=== PATIENT | female | born 1990 | race Caucasian/White ===

== ENCOUNTER 2016-06-08 02:44 | Emergency (ER) | payer MEDICAID, OTHER ==
[~2016-06-08 02:44] MED LIST: ACET50TA PO; ANUS2.5C2 PR; COLA50CA3 PO; IBUP80TA PO; METH40TA PO; MOM30SS PO; PRENTAB74 PO
[2016-06-08] MEDS ORDERED: ALBUTEROL 90 MCG/ACT 8GM HFA INHALER As Ordered ONE (03:41)
[2016-06-08] MEDS ORDERED: predniSONE 20 MG TAB As Ordered ONE (04:05)
[2016-06-08] MEDS ORDERED: AZITHROMYCIN 250 MG TAB As Ordered ONE (04:06)
[2016-06-08 04:21] LABS: CONTROL LINE HCG INT CTR LINE PRESENT
[2016-06-08 04:55] LABS: CONTROL LINE INT CTR LINE PRESENT
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
[2016-06-08 10:41] LABS: IMMUNODEF. VIRAL AB CONFIRMAT NEGATIVE
[2016-06-09 09:07] LABS: HEPATITIS B SURFACE ANTIBODY NEGATIVE (POSITIVE)
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
[2016-06-12 00:08] LABS: HCV RNA NAA QUALITIATIVE Positive (Negative)
== END 2016-06-08 07:38 | disposition home or self-care (01) ==
LOC: M ED 02:44
DX: Z20.2 Contact with and (suspected) exposure to infections with a predominantly sexual mode of transmission (principal); J20.9 Acute bronchitis, unspecified; T76.21XA Adult sexual abuse, suspected, initial encounter; F32.9 Major depressive disorder, single episode, unspecified; F41.9 Anxiety disorder, unspecified; F43.10 Post-traumatic stress disorder, unspecified; B19.20 Unspecified viral hepatitis C without hepatic coma; F19.20 Other psychoactive substance dependence, uncomplicated; F17.210 Nicotine dependence, cigarettes, uncomplicated
CPT/HCPCS: 36415; 84703; 86706; 86780; 86803; 87340; 87491; 87521; 87591; 87806; 99283; G0432

== ENCOUNTER → 2018-07-01 | Outpatient (CLI) | payer OTHER, MEDICAID ==
[2018-07-01 12:06] LABS: BASO % 0.3 % (0.0-1.0); EOS # 0.1 10^3/uL (0.0-0.50); EOS % 1.3 % (0.0-3.0); HEMATOCRIT 42.5 % (36.0-47.0); HEMOGLOBIN 14.8 g/dl (12.0-15.5); LYMPH # 1.7 10^3/uL (1.5-6.5); LYMPH % 24.3 % (24.0-44.0); MEAN CORPUSCULAR HEMOGLOBIN 31.4 pg (27.0-33.0); MEAN CORPUSCULAR HGB CONC 34.8 g/dl (32.0-36.5); MEAN CORPUSCULAR VOLUME 90.2 fl (80.0-96.0); MONO # 0.5 10^3/uL (0.0-0.8); MONO % 6.6 % (0.0-5.0); NEUTROPHILS # 4.8 10^3/uL (1.8-7.7); NEUTROPHILS % 67.4 % (36.0-66.0); PLATELET COUNT, AUTOMATED 342 10^3/uL (150-450); RED BLOOD COUNT 4.71 10^6/uL (4.00-5.40); WHITE BLOOD COUNT 7.1 10^3/uL (4.0-10.0)
[2018-07-01 12:28] LABS: ALBUMIN 3.8 GM/DL (3.2-5.2); ALT/SGPT 27 U/L (12-78); BILIRUBIN,TOTAL 0.2 MG/DL (0.2-1.0); BLOOD UREA NITROGEN 13 MG/DL (7-18); CALCIUM LEVEL 8.8 MG/DL (8.5-10.1); CARBON DIOXIDE LEVEL 31 MEQ/L (21-32); CHLORIDE LEVEL 105 MEQ/L (98-107); CREATININE FOR GFR 0.68 MG/DL (0.55-1.30); GLOMERULAR FILTRATION RATE > 60.0 (>60); GLUCOSE, FASTING 95 MG/DL (70-100); POTASSIUM SERUM 4.4 MEQ/L (3.5-5.1); SODIUM LEVEL 138 MEQ/L (136-145); TOTAL PROTEIN 7.8 GM/DL (6.4-8.2)
--- NOTE | 2018-07-01 13:42 | ECGEPIP ---
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
== END ==
LOC: M LAB 11:09
PROVIDERS: ATTEND Nurse Practitioner
DX: F11.20 Opioid dependence, uncomplicated (principal); R00.1 Bradycardia, unspecified

== ENCOUNTER 2022-10-02 04:29 | Observation (INO) | payer MEDICAID, OTHER ==
[~2022-10-02] VITALS: Ht 160 cm; Wt 86.4 kg
[~2022-10-02 04:29] MED LIST changes: -ACET50TA PO; +MAPA500T17 PO
[2022-10-02] MEDS ORDERED: VANCOMYCIN HCL 2,000 MG in D5W 500 ML IV ONE (05:10)
[2022-10-02 05:33] LABS: BASO % 0.2 % (0.0-1.0); EOS # 0.1 10^3/uL (0.0-0.5); EOS % 0.4 % (0.0-3.0); HEMOGLOBIN 11.7 g/dl (12.0-15.5); LYMPH # 1.5 10^3/uL (1.5-5.0); LYMPH % 8.2 % (24.0-44.0); MEAN CORPUSCULAR HEMOGLOBIN 29.9 pg (27.0-33.0); MEAN CORPUSCULAR HGB CONC 32.5 g/dl (32.0-36.5); MEAN CORPUSCULAR VOLUME 92.1 fl (80.0-96.0); MONO # 1.1 10^3/uL (0.0-0.8); MONO % 6.2 % (2.0-8.0); NEUTROPHILS % 84.3 % (36.0-66.0); PLATELET COUNT, AUTOMATED 256 10^3/uL (150-450); RED BLOOD COUNT 3.91 10^6/uL (4.00-5.40); WHITE BLOOD COUNT 17.8 10^3/uL (4.0-10.0)
[2022-10-02 05:59] LABS: BLOOD UREA NITROGEN 9 MG/DL (9-23); CALCIUM LEVEL 8.5 MG/DL (8.5-10.1); CARBON DIOXIDE LEVEL 26 MMOL/L (20-31); CHLORIDE LEVEL 98 MMOL/L (98-107); CREATININE FOR GFR 0.62 MG/DL (0.55-1.30); GLOMERULAR FILTRATION RATE > 60.0 (>60); GLUCOSE, FASTING 101 MG/DL (60-100); SODIUM LEVEL 133 MMOL/L (136-145)
[2022-10-02] MEDS ORDERED: VANCOMYCIN HCL 1,000 MG, VIAL MATE ADAPTER 1 EACH in D5W 250 ML IV ONE ×6 (06:00)
[2022-10-02 06:38] LABS: MRSA PCR SCREEN DETECTED (NEGATIVE)
[2022-10-02] MEDS ORDERED: METH10CO PO (07:16)
[2022-10-02] MEDS ORDERED: HOME MED LIST COMPLETE! XX SCH (07:20)
[2022-10-02 11:00] VITALS: BP 137/76; TEMP 98.6; O2SAT 100
[2022-10-02] MEDS: VANCOMYCIN HCL 1,000 MG, VIAL MATE ADAPTER 1 EACH in D5W 250 ML IV SCH ×2 (14:22→21:41)
[2022-10-02 22:00] VITALS: BP 132/62; TEMP 98.4; O2SAT 90
[2022-10-03] MEDS: VANCOMYCIN HCL 1,000 MG, VIAL MATE ADAPTER 1 EACH in D5W 250 ML IV SCH (05:54)
[2022-10-03 06:00] VITALS: BP 124/86; TEMP 98.6; O2SAT 90
[2022-10-03 07:13] LABS: ERYTHROCYTE SEDIMENTATION RATE 56 mm/hr (0-20)
[2022-10-03 07:23] LABS: VANCOMYCIN LEVEL TROUGH 9.3 UG/ML (10.0-20.0)
[2022-10-03 07:25] LABS: ALBUMIN 2.7 G/DL (3.2-5.2); ALKALINE PHOSPHATASE 130 U/L (46-116); ALT/SGPT 40 U/L (7.0-40); AST/SGOT 49 U/L (<34); BILIRUBIN,TOTAL 0.4 MG/DL (0.3-1.2); BLOOD UREA NITROGEN 8 MG/DL (9-23); CALCIUM LEVEL 8.8 MG/DL (8.5-10.1); CARBON DIOXIDE LEVEL 29 MMOL/L (20-31); CHLORIDE LEVEL 103 MMOL/L (98-107); CREATININE FOR GFR 0.63 MG/DL (0.55-1.30); GLOMERULAR FILTRATION RATE > 60.0 (>60); GLUCOSE, FASTING 74 MG/DL (60-100); POTASSIUM SERUM 3.8 MMOL/L (3.5-5.1); SODIUM LEVEL 140 MMOL/L (136-145); TOTAL PROTEIN 6.2 G/DL (5.7-8.2)
[2022-10-03 07:46] LABS: HEMATOCRIT 33.8 % (36.0-47.0); MEAN CORPUSCULAR HEMOGLOBIN 30.2 pg (27.0-33.0); MEAN CORPUSCULAR HGB CONC 32.5 g/dl (32.0-36.5); MEAN CORPUSCULAR VOLUME 92.9 fl (80.0-96.0); PLATELET COUNT, AUTOMATED 272 10^3/uL (150-450); RED BLOOD COUNT 3.64 10^6/uL (4.00-5.40); WHITE BLOOD COUNT 13.8 10^3/uL (4.0-10.0)
[2022-10-03] MEDS ORDERED: VANCOMYCIN HCL 750 MG, VIAL MATE ADAPTER 1 EACH in D5W 250 ML IV ONE (08:00)
[2022-10-03] MEDS ORDERED: CEFD300C41 PO (11:23)
[2022-10-03] MEDS ORDERED: DOXY-444 PO (11:23)
== END 2022-10-03 13:30 | disposition home or self-care (01) ==
LOC: M ED 04:29 → M ED INP 04:30 → EEVIPCON 04:30 → ENRESERV 08:43 → M MS5PR 10:41
PROVIDERS: ADMIT Internal Medicine; ATTEND Internal Medicine
DX: L03.116 Cellulitis of left lower limb (principal); B95.0 Streptococcus, group A, as the cause of diseases classified elsewhere; F19.10 Other psychoactive substance abuse, uncomplicated; F32.A Depression, unspecified; B19.20 Unspecified viral hepatitis C without hepatic coma; Z79.899 Other long term (current) drug therapy

== ENCOUNTER 2022-10-04 12:14 | Observation (INO) | payer OTHER ==
[~2022-10-04] VITALS: Ht 160 cm; Wt 88.0 kg
[~2022-10-04 12:14] MED LIST changes: +CEFD300C41 PO; +DOXY-444 PO; +METH10CO PO
[2022-10-04] MEDS ORDERED: ACETAMINOPHEN TAB 650MG DOSE (2X325MG) PO ONE (13:25)
[2022-10-04 14:14] LABS: BASO # 0.1 10^3/uL (0.0-0.2); BASO % 0.6 % (0.0-1.0); EOS # 0.1 10^3/uL (0.0-0.5); EOS % 0.6 % (0.0-3.0); HEMATOCRIT 36.3 % (36.0-47.0); HEMOGLOBIN 12.1 g/dl (12.0-15.5); LYMPH # 0.3 10^3/uL (1.5-5.0); LYMPH % 3.2 % (24.0-44.0); MEAN CORPUSCULAR HEMOGLOBIN 30.3 pg (27.0-33.0); MEAN CORPUSCULAR HGB CONC 33.3 g/dl (32.0-36.5); MONO # 0.1 10^3/uL (0.0-0.8); NEUTROPHILS # 8.1 10^3/uL (1.5-8.5); NEUTROPHILS % 93.2 % (36.0-66.0); PLATELET COUNT, AUTOMATED 304 10^3/uL (150-450); RED BLOOD COUNT 3.99 10^6/uL (4.00-5.40); WHITE BLOOD COUNT 8.7 10^3/uL (4.0-10.0)
[2022-10-04 14:30] LABS: ERYTHROCYTE SEDIMENTATION RATE 113 mm/hr (0-20)
[2022-10-04 14:36] LABS: BLOOD UREA NITROGEN 8 MG/DL (9-23); CALCIUM LEVEL 8.7 MG/DL (8.5-10.1); CARBON DIOXIDE LEVEL 24 MMOL/L (20-31); CHLORIDE LEVEL 99 MMOL/L (98-107); CREATININE FOR GFR 0.64 MG/DL (0.55-1.30); GLOMERULAR FILTRATION RATE > 60.0 (>60); GLUCOSE, FASTING 92 MG/DL (60-100); POTASSIUM SERUM 4.3 MMOL/L (3.5-5.1); SODIUM LEVEL 133 MMOL/L (136-145)
[2022-10-04] MEDS ORDERED: KETOROLAC 30 MG/ML 1ML VIAL IV ONE (15:15)
[2022-10-04] MEDS ORDERED: ACETAMINOPHEN TAB 650MG DOSE (2X325MG) PO PRN (16:05)
[2022-10-04] MEDS ORDERED: MED REC IN PROGRESS XX SCH (16:30)
[2022-10-04] MEDS: NS 1,000 ML IV SCH (16:47)
[2022-10-04] MEDS: PIPERACILLIN/TAZOBACTAM SOD 3.375 GM in D5W MINI-BAG PLUS 50 ML IV SCH ×2 (16:47→22:25)
[2022-10-04 18:09] LABS: ALBUMIN 2.8 G/DL (3.2-5.2); BILIRUBIN,DIRECT 0.8 MG/DL (<0.4); BILIRUBIN,TOTAL 1.2 MG/DL (0.3-1.2); TOTAL PROTEIN 6.5 G/DL (5.7-8.2)
[2022-10-04] MEDS ORDERED: HOME MED LIST COMPLETE! XX SCH (18:10)
[2022-10-04 18:28] LABS: RSV AMPLIFICATION NEGATIVE (NEGATIVE)
[2022-10-04 20:30] VITALS: BP 100/54; TEMP 97.8; O2SAT 98
[2022-10-04] MEDS: ENOXAPARIN 40MG/0.4ML SYRINGE (J1650 PER 10MG) SC SCH (21:51)
[2022-10-04] MEDS ORDERED: KETOROLAC 30 MG/ML 1ML VIAL IV PRN (22:00)
[2022-10-05] MEDS: NS 1,000 ML IV SCH ×2 (03:16→12:54)
[2022-10-05] MEDS: PIPERACILLIN/TAZOBACTAM SOD 3.375 GM in D5W MINI-BAG PLUS 50 ML IV SCH ×4 (04:27→21:47)
[2022-10-05 06:00] VITALS: BP 116/62; TEMP 97.9; O2SAT 98
[2022-10-05 06:00] LABS: HEMATOCRIT 35.7 % (36.0-47.0); HEMOGLOBIN 11.5 g/dl (12.0-15.5); MEAN CORPUSCULAR HEMOGLOBIN 29.7 pg (27.0-33.0); MEAN CORPUSCULAR HGB CONC 32.2 g/dl (32.0-36.5); MEAN CORPUSCULAR VOLUME 92.2 fl (80.0-96.0); PLATELET COUNT, AUTOMATED 332 10^3/uL (150-450); RED BLOOD COUNT 3.87 10^6/uL (4.00-5.40); WHITE BLOOD COUNT 9.3 10^3/uL (4.0-10.0)
[2022-10-05 06:25] LABS: ALBUMIN 2.5 G/DL (3.2-5.2); ALKALINE PHOSPHATASE 307 U/L (46-116); ALT/SGPT 92 U/L (7.0-40); AST/SGOT 104 U/L (<34); BILIRUBIN,TOTAL 0.4 MG/DL (0.3-1.2); BLOOD UREA NITROGEN 12 MG/DL (9-23); CALCIUM LEVEL 8.3 MG/DL (8.5-10.1); CARBON DIOXIDE LEVEL 28 MMOL/L (20-31); CHLORIDE LEVEL 105 MMOL/L (98-107); CREATININE FOR GFR 0.76 MG/DL (0.55-1.30); GLOMERULAR FILTRATION RATE > 60.0 (>60); GLUCOSE, FASTING 87 MG/DL (60-100); POTASSIUM SERUM 3.5 MMOL/L (3.5-5.1); SODIUM LEVEL 141 MMOL/L (136-145); TOTAL PROTEIN 6.2 G/DL (5.7-8.2)
[2022-10-05] MEDS: METHADONE 10MG TAB PO SCH (09:25)
[2022-10-05 14:00] VITALS: BP 111/57; TEMP 97.5; O2SAT 95
[2022-10-05 20:00] VITALS: BP 108/57; TEMP 98.1; O2SAT 98
[2022-10-05] MEDS: ENOXAPARIN 40MG/0.4ML SYRINGE (J1650 PER 10MG) SC SCH (21:47)
[2022-10-06] MEDS: PIPERACILLIN/TAZOBACTAM SOD 3.375 GM in D5W MINI-BAG PLUS 50 ML IV SCH ×2 (05:23→12:00)
[2022-10-06 06:00] VITALS: BP 126/69; TEMP 97.2; O2SAT 96
[2022-10-06 06:56] LABS: BLOOD UREA NITROGEN 11 MG/DL (9-23); CALCIUM LEVEL 8.7 MG/DL (8.5-10.1); CARBON DIOXIDE LEVEL 29 MMOL/L (20-31); CHLORIDE LEVEL 106 MMOL/L (98-107); CREATININE FOR GFR 0.72 MG/DL (0.55-1.30); GLOMERULAR FILTRATION RATE > 60.0 (>60); GLUCOSE, FASTING 71 MG/DL (60-100); SODIUM LEVEL 142 MMOL/L (136-145)
[2022-10-06] MEDS: METHADONE 10MG TAB PO SCH (08:42)
[2022-10-06 14:00] VITALS: BP 123/68; TEMP 98.2; O2SAT 96
[2022-10-06] MEDS: DOXYCYCLINE HYCLATE 100MG TABLET PO SCH (21:21)
[2022-10-06] MEDS: ENOXAPARIN 40MG/0.4ML SYRINGE (J1650 PER 10MG) SC SCH (21:21)
[2022-10-07 06:00] VITALS: BP 121/68; TEMP 97.9; O2SAT 97
[2022-10-07] MEDS: METHADONE 10MG TAB PO SCH (09:04)
[2022-10-07] MEDS: DOXYCYCLINE HYCLATE 100MG TABLET PO SCH (09:04)
[2022-10-07] MEDS ORDERED: DOXY100T PO (12:03)
[2022-10-07] MEDS ORDERED: ACET1TAB55 PO (12:03)
== END 2022-10-07 14:29 | disposition home or self-care (01) ==
LOC: M ED 12:14 → M ED INP 12:15 → M MSPAV 20:30
PROVIDERS: ADMIT Internal Medicine; ATTEND Family Medicine
DX: L03.113 Cellulitis of right upper limb (principal); A41.9 Sepsis, unspecified organism; F19.10 Other psychoactive substance abuse, uncomplicated; E87.1 Hypo-osmolality and hyponatremia; E86.0 Dehydration; R00.0 Tachycardia, unspecified; R70.0 Elevated erythrocyte sedimentation rate; R79.82 Elevated C-reactive protein (CRP); R42 Dizziness and giddiness; R26.2 Difficulty in walking, not elsewhere classified; Z79.899 Other long term (current) drug therapy
CPT/HCPCS: 36415; 80048; 80053; 80076; 83605; 85025; 85027; 85652; 86140; 87040; 87631; 96361; 96365; 96366; 96372; 96375; 96376; 97116; 97161; 97530; 99284; J1650; J1885; J2543; S0109

== ENCOUNTER → 2022-12-06 | Outpatient (CLI) | payer OTHER ==
[~2022-12-06] MED LIST changes: +ACET1TAB55 PO; +DOXY100T PO
[2022-12-06 17:08] LABS: HEMATOCRIT 37.7 % (36.0-47.0); HEMOGLOBIN 12.9 g/dl (12.0-15.5); MEAN CORPUSCULAR HEMOGLOBIN 30.3 pg (27.0-33.0); MEAN CORPUSCULAR HGB CONC 34.2 g/dl (32.0-36.5); MEAN CORPUSCULAR VOLUME 88.5 fl (80.0-96.0); PLATELET COUNT, AUTOMATED 339 10^3/uL (150-450); RED BLOOD COUNT 4.26 10^6/uL (4.00-5.40); WHITE BLOOD COUNT 7.2 10^3/uL (4.0-10.0)
[2022-12-06 17:33] LABS: ALKALINE PHOSPHATASE 101 U/L (46-116); ALT/SGPT 21 U/L (7.0-40); AST/SGOT 22 U/L (<34); BILIRUBIN,TOTAL 0.5 MG/DL (0.3-1.2); BLOOD UREA NITROGEN 14 MG/DL (9-23); CALCIUM LEVEL 9.2 MG/DL (8.5-10.1); CARBON DIOXIDE LEVEL 27 MMOL/L (20-31); CHLORIDE LEVEL 105 MMOL/L (98-107); CREATININE FOR GFR 0.62 MG/DL (0.55-1.30); GLOMERULAR FILTRATION RATE > 60.0 (>60); GLUCOSE, FASTING 93 MG/DL (60-100); POTASSIUM SERUM 3.8 MMOL/L (3.5-5.1); SODIUM LEVEL 140 MMOL/L (136-145); TOTAL PROTEIN 7.6 G/DL (5.7-8.2)
[2022-12-06 17:46] LABS: HCG, SERUM QUALITATIVE NEGATIVE (NEGATIVE)
[2022-12-06 18:00] LABS: HIV 1&2 SCREEN NEGATIVE (NEGATIVE)
[2022-12-06 18:09] LABS: HEPATITIS C VIRUS ABY INDEX > 11.00 INDEX (<0.8)
[2022-12-06 18:47] LABS: GC DNA AMPLIFICATION NEGATIVE (NEGATIVE)
== END ==
LOC: M LAB 15:53
PROVIDERS: ATTEND Family Medicine
DX: F11.20 Opioid dependence, uncomplicated (principal)

== ENCOUNTER 2023-05-24 11:10 | Inpatient (IN) | payer OTHER ==
[~2023-05-24] VITALS: Ht 160 cm; Wt 83.6 kg
[~2023-05-24 11:10] MED LIST changes: +CEFD1CAP9 PO; -CEFD300C41 PO
[2023-05-24] MEDS ORDERED: IBUP200T46 PO (11:33)
[2023-05-24] MEDS ORDERED: METH5TA PO (11:34)
[2023-05-24 14:40] LABS: BASO % 0.2 % (0.0-1.0); HEMATOCRIT 37.8 % (36.0-47.0); HEMOGLOBIN 12.6 g/dl (12.0-15.5); LYMPH # 0.8 10^3/uL (1.5-5.0); MEAN CORPUSCULAR HEMOGLOBIN 30.1 pg (27.0-33.0); MEAN CORPUSCULAR HGB CONC 33.3 g/dl (32.0-36.5); MEAN CORPUSCULAR VOLUME 90.2 fl (80.0-96.0); MONO # 0.6 10^3/uL (0.0-0.8); MONO % 4.5 % (2.0-8.0); NEUTROPHILS # 11.3 10^3/uL (1.5-8.5); NEUTROPHILS % 88.4 % (36.0-66.0); PLATELET COUNT, AUTOMATED 236 10^3/uL (150-450); RED BLOOD COUNT 4.19 10^6/uL (4.00-5.40); WHITE BLOOD COUNT 12.8 10^3/uL (4.0-10.0)
[2023-05-24] MEDS: ACETAMINOPHEN 500 MG TAB PO ONE (14:40)
[2023-05-24] MEDS: diphenhydrAMINE 50MG/ML VIAL IV ONE (14:40)
[2023-05-24] MEDS: methylPREDNISolone 125MG 2ML VIAL IV ONE (14:40)
[2023-05-24] MEDS: NS 1,000 ML IV ONE (14:40)
[2023-05-24 14:50] LABS: ERYTHROCYTE SEDIMENTATION RATE 80 mm/hr (0-20)
[2023-05-24 15:11] LABS: BLOOD UREA NITROGEN 10 MG/DL (9-23); CALCIUM LEVEL 8.4 MG/DL (8.5-10.1); CARBON DIOXIDE LEVEL 31 MMOL/L (20-31); CHLORIDE LEVEL 96 MMOL/L (98-107); CREATININE FOR GFR 0.64 MG/DL (0.55-1.30); GLOMERULAR FILTRATION RATE > 60.0 (>60); GLUCOSE, FASTING 88 MG/DL (60-100); POTASSIUM SERUM 3.7 MMOL/L (3.5-5.1); SODIUM LEVEL 132 MMOL/L (136-145)
[2023-05-24 15:12] LABS: ALBUMIN 2.7 G/DL (3.2-5.2); ALKALINE PHOSPHATASE 116 U/L (46-116); ALT/SGPT 21 U/L (7.0-40); AST/SGOT 27 U/L (<34); BILIRUBIN,DIRECT 0.1 MG/DL (<0.4); BILIRUBIN,TOTAL 0.3 MG/DL (0.3-1.2); TOTAL PROTEIN 6.6 G/DL (5.7-8.2)
[2023-05-24] MEDS ORDERED: ISOVUE-370 76% 100ML VIAL As Ordered ONE (15:14)
[2023-05-24 15:19] LABS: PROCALCITONIN 0.44 ng/ml
[2023-05-24 15:52] LABS: HCG, SERUM QUALITATIVE NEGATIVE (NEGATIVE)
[2023-05-24 15:57] LABS: MONO SCRN NEGATIVE (NEGATIVE)
[2023-05-24] MEDS: AMPICILLIN SOD/SULBACTAM SOD 3 GM in D5W MINI-BAG PLUS 100 ML IV ONE (18:51)
[2023-05-24] MEDS: SODIUM CHLORIDE 0.9% 1000ML IV STA (19:50)
[2023-05-24 20:25] LABS: HIV 1&2 SCREEN NEGATIVE (NEGATIVE)
[2023-05-24 20:55] VITALS: BP 114/69; TEMP 97.5; O2SAT 95
[2023-05-24 23:30] VITALS: BP 107/60; TEMP 97.8; O2SAT 96
[2023-05-25] MEDS: AMPICILLIN SOD/SULBACTAM SOD 3 GM in D5W MINI-BAG PLUS 100 ML IV SCH (01:19)
[2023-05-25 04:45] VITALS: BP 108/68; TEMP 97.9; O2SAT 99
[2023-05-25 05:31] LABS: HEMATOCRIT 33.8 % (36.0-47.0); HEMOGLOBIN 11.4 g/dl (12.0-15.5); MEAN CORPUSCULAR HEMOGLOBIN 30.2 pg (27.0-33.0); MEAN CORPUSCULAR HGB CONC 33.7 g/dl (32.0-36.5); MEAN CORPUSCULAR VOLUME 89.7 fl (80.0-96.0); PLATELET COUNT, AUTOMATED 198 10^3/uL (150-450); RED BLOOD COUNT 3.77 10^6/uL (4.00-5.40); WHITE BLOOD COUNT 9.9 10^3/uL (4.0-10.0)
[2023-05-25 05:52] LABS: BLOOD UREA NITROGEN 10 MG/DL (9-23); CARBON DIOXIDE LEVEL 28 MMOL/L (20-31); CHLORIDE LEVEL 105 MMOL/L (98-107); CREATININE FOR GFR 0.47 MG/DL (0.55-1.30); GLOMERULAR FILTRATION RATE > 60.0 (>60); GLUCOSE, FASTING 159 MG/DL (60-100); POTASSIUM SERUM 3.9 MMOL/L (3.5-5.1); SODIUM LEVEL 139 MMOL/L (136-145)
[2023-05-25 05:58] LABS: PROCALCITONIN 0.33 ng/ml
[2023-05-25 07:26] VITALS: BP 110/56; TEMP 98.3; O2SAT 95
[2023-05-25 08:27] LABS: BLOOD UREA NITROGEN 8 MG/DL (9-23); CALCIUM LEVEL 8.3 MG/DL (8.5-10.1); CARBON DIOXIDE LEVEL 29 MMOL/L (20-31); CHLORIDE LEVEL 103 MMOL/L (98-107); CREATININE FOR GFR 0.44 MG/DL (0.55-1.30); GLOMERULAR FILTRATION RATE > 60.0 (>60); GLUCOSE, FASTING 147 MG/DL (60-100); POTASSIUM SERUM 3.8 MMOL/L (3.5-5.1); SODIUM LEVEL 137 MMOL/L (136-145)
[2023-05-25] MEDS ORDERED: HOME MED LIST COMPLETE! XX SCH (08:45)
[2023-05-25] MEDS: ENOXAPARIN 40MG/0.4ML SYRINGE (J1650 PER 10MG) SC SCH (08:45)
[2023-05-25] MEDS: POTASSIUM CHLORIDE 10MEQ SR TABLET PO ONE (10:25)
[2023-05-25] MEDS: ACETAMINOPHEN TAB 650MG DOSE (2X325MG) PO PRN (10:25)
[2023-05-25 11:41] VITALS: BP 98/54; TEMP 97.3; O2SAT 96
[2023-05-25 12:39] LABS: APPEARANCE, URINE CLEAR (CLEAR); BACTERIA, URINE AUTO NEGATIVE (NEGATIVE); BILIRUBIN, URINE AUTO NEGATIVE (NEGATIVE); BLOOD, URINE BLOOD NEGATIVE (NEGATIVE); COLOR, URINE YELLOW (YELLOW); GLUCOSE, URINE (UA) AUTO NEGATIVE (NEGATIVE); KETONE, URINE AUTO NEGATIVE (NEGATIVE); LEUKOCYTE ESTERASE, URINE AUTO NEGATIVE (NEGATIVE); MUCUS, URINE SMALL (NEGATIVE); NITRITE, URINE AUTO NEGATIVE (NEGATIVE); PROTEIN, URINE AUTO 1+ mg/dL (NEGATIVE); RBC, URINE AUTO 0 /HPF (0-3); SPECIFIC GRAVITY URINE AUTO 1.016 (1.002-1.035); SQUAMOUS EPITHELIAL CELL UR AU 4 /HPF (0-6); WBC, URINE AUTO 1 /HPF (0-3)
[2023-05-25 15:18] LABS: BLOOD UREA NITROGEN 10 MG/DL (9-23); CALCIUM LEVEL 8.7 MG/DL (8.5-10.1); CARBON DIOXIDE LEVEL 30 MMOL/L (20-31); CHLORIDE LEVEL 104 MMOL/L (98-107); CREATININE FOR GFR 0.42 MG/DL (0.55-1.30); GLOMERULAR FILTRATION RATE > 60.0 (>60); GLUCOSE, FASTING 142 MG/DL (60-100); POTASSIUM SERUM 4.1 MMOL/L (3.5-5.1); SODIUM LEVEL 140 MMOL/L (136-145)
[2023-05-25] MEDS: METHADONE 10MG TAB PO SCH (15:23)
[2023-05-25 16:11] VITALS: BP 98/60; TEMP 97.2; O2SAT 97
[2023-05-25 20:08] LABS: BLOOD UREA NITROGEN 9 MG/DL (9-23); CALCIUM LEVEL 8.4 MG/DL (8.5-10.1); CARBON DIOXIDE LEVEL 30 MMOL/L (20-31); CHLORIDE LEVEL 105 MMOL/L (98-107); CREATININE FOR GFR 0.47 MG/DL (0.55-1.30); GLOMERULAR FILTRATION RATE > 60.0 (>60); GLUCOSE, FASTING 165 MG/DL (60-100); POTASSIUM SERUM 3.7 MMOL/L (3.5-5.1); SODIUM LEVEL 140 MMOL/L (136-145)
[2023-05-25 20:30] VITALS: BP 99/57; TEMP 97.8; O2SAT 98
[2023-05-26] VITALS: BP 98/52; TEMP 97.6; O2SAT 96
[2023-05-26 03:12] LABS: BLOOD UREA NITROGEN 9 MG/DL (9-23); CALCIUM LEVEL 8.4 MG/DL (8.5-10.1); CARBON DIOXIDE LEVEL 33 MMOL/L (20-31); CHLORIDE LEVEL 105 MMOL/L (98-107); CREATININE FOR GFR 0.47 MG/DL (0.55-1.30); GLOMERULAR FILTRATION RATE > 60.0 (>60); GLUCOSE, FASTING 93 MG/DL (60-100); POTASSIUM SERUM 3.6 MMOL/L (3.5-5.1); SODIUM LEVEL 144 MMOL/L (136-145)
[2023-05-26 04:00] VITALS: BP 132/67; TEMP 97.5; O2SAT 93
[2023-05-26 06:42] LABS: HEMATOCRIT 33.5 % (36.0-47.0); MEAN CORPUSCULAR HEMOGLOBIN 29.8 pg (27.0-33.0); MEAN CORPUSCULAR HGB CONC 32.8 g/dl (32.0-36.5); MEAN CORPUSCULAR VOLUME 90.8 fl (80.0-96.0); PLATELET COUNT, AUTOMATED 224 10^3/uL (150-450); RED BLOOD COUNT 3.69 10^6/uL (4.00-5.40); WHITE BLOOD COUNT 8.7 10^3/uL (4.0-10.0)
[2023-05-26 06:47] LABS: BLOOD UREA NITROGEN 10 MG/DL (9-23); CALCIUM LEVEL 8.3 MG/DL (8.5-10.1); CARBON DIOXIDE LEVEL 33 MMOL/L (20-31); CHLORIDE LEVEL 105 MMOL/L (98-107); GLOMERULAR FILTRATION RATE > 60.0 (>60); GLUCOSE, FASTING 77 MG/DL (60-100); POTASSIUM SERUM 3.5 MMOL/L (3.5-5.1); SODIUM LEVEL 143 MMOL/L (136-145)
[2023-05-26 07:22] VITALS: BP 123/58; TEMP 97.5; O2SAT 95
[2023-05-26] MEDS: POTASSIUM CHLORIDE 10MEQ SR TABLET PO ONE ×2 (08:57→13:52)
[2023-05-26 11:21] VITALS: BP 122/65; TEMP 98.2; O2SAT 96
[2023-05-26 13:58] LABS: BLOOD UREA NITROGEN 9 MG/DL (9-23); CALCIUM LEVEL 7.9 MG/DL (8.5-10.1); CARBON DIOXIDE LEVEL 34 MMOL/L (20-31); CHLORIDE LEVEL 105 MMOL/L (98-107); CREATININE FOR GFR 0.48 MG/DL (0.55-1.30); GLOMERULAR FILTRATION RATE > 60.0 (>60); GLUCOSE, FASTING 82 MG/DL (60-100); POTASSIUM SERUM 3.5 MMOL/L (3.5-5.1); SODIUM LEVEL 142 MMOL/L (136-145)
[2023-05-26 19:28] VITALS: BP 110/57; TEMP 98.9; O2SAT 96
[2023-05-26 19:55] LABS: BLOOD UREA NITROGEN 7 MG/DL (9-23); CALCIUM LEVEL 8.3 MG/DL (8.5-10.1); CARBON DIOXIDE LEVEL 33 MMOL/L (20-31); CHLORIDE LEVEL 102 MMOL/L (98-107); CREATININE FOR GFR 0.51 MG/DL (0.55-1.30); GLOMERULAR FILTRATION RATE > 60.0 (>60); GLUCOSE, FASTING 106 MG/DL (60-100); POTASSIUM SERUM 3.9 MMOL/L (3.5-5.1); SODIUM LEVEL 140 MMOL/L (136-145)
[2023-05-26] MEDS ORDERED: AUGMENTIN 500MG TAB PO SCH (21:00)
[2023-05-26] MEDS: AUGMENTIN 875 MG TAB PO SCH (21:13)
[2023-05-26 23:29] VITALS: BP 149/85; TEMP 99; O2SAT 97
[2023-05-26 23:49] LABS: ANTI-STREPTOLYSIN O QUANT 95.1 IU/ML (<195)
[2023-05-27 01:53] VITALS: BP 106/65; TEMP 99.3; O2SAT 95
[2023-05-27 02:49] LABS: BLOOD UREA NITROGEN < 5 MG/DL (9-23); CALCIUM LEVEL 8.8 MG/DL (8.5-10.1); CARBON DIOXIDE LEVEL 32 MMOL/L (20-31); CHLORIDE LEVEL 101 MMOL/L (98-107); CREATININE FOR GFR 0.53 MG/DL (0.55-1.30); GLOMERULAR FILTRATION RATE > 60.0 (>60); GLUCOSE, FASTING 67 MG/DL (60-100); POTASSIUM SERUM 4.3 MMOL/L (3.5-5.1); SODIUM LEVEL 137 MMOL/L (136-145)
[2023-05-27 05:05] VITALS: BP 116/76; TEMP 99.7; O2SAT 94
[2023-05-27 07:43] LABS: HEMATOCRIT 39.2 % (36.0-47.0); HEMOGLOBIN 12.9 g/dl (12.0-15.5); MEAN CORPUSCULAR HEMOGLOBIN 29.9 pg (27.0-33.0); MEAN CORPUSCULAR HGB CONC 32.9 g/dl (32.0-36.5); MEAN CORPUSCULAR VOLUME 90.7 fl (80.0-96.0); PLATELET COUNT, AUTOMATED 351 10^3/uL (150-450); RED BLOOD COUNT 4.32 10^6/uL (4.00-5.40); WHITE BLOOD COUNT 8.2 10^3/uL (4.0-10.0)
[2023-05-27] MEDS ORDERED: AMOX875T2 PO (11:02)
[2023-05-29 00:09] LABS: HEPATITIS A IgG TOTAL Negative (Negative); HEPATITIS B CORE ANTIBODY IGG Negative (Negative)
== END 2023-05-27 11:51 | disposition home or self-care (01) | DRG 383 ==
LOC: M ED 11:10 → M ED INP 18:27 → ENRESERV 19:14 → M PCU 20:55 → M MSPAV 05-26 23:23
PROVIDERS: ADMIT Internal Medicine; ATTEND Internal Medicine
DX: L03.221 Cellulitis of neck (principal); L03.811 Cellulitis of head [any part, except face]; F19.11 Other psychoactive substance abuse, in remission; F31.9 Bipolar disorder, unspecified; Z90.49 Acquired absence of other specified parts of digestive tract; Z79.891 Long term (current) use of opiate analgesic; Z20.822 Contact with and (suspected) exposure to COVID-19

== ENCOUNTER 2023-08-26 21:16 | Emergency (ER) | payer MEDICAID, OTHER, SELFPAY ==
[~2023-08-26] VITALS: Ht 160 cm; Wt 83.1 kg
[~2023-08-26 21:16] MED LIST changes: +AMOX875T2 PO; +DOXY-440 PO; -DOXY-444 PO; +IBUP200T46 PO; +METH5TA PO
[2023-08-26 22:23] LABS: BASO # 0.1 10^3/uL (0.0-0.2); BASO % 0.5 % (0.0-1.0); EOS # 0.1 10^3/uL (0.0-0.5); EOS % 0.8 % (0.0-3.0); HEMATOCRIT 44.3 % (36.0-47.0); HEMOGLOBIN 14.9 g/dl (12.0-15.5); MEAN CORPUSCULAR HEMOGLOBIN 30.4 pg (27.0-33.0); MEAN CORPUSCULAR HGB CONC 33.6 g/dl (32.0-36.5); MEAN CORPUSCULAR VOLUME 90.4 fl (80.0-96.0); MONO # 0.6 10^3/uL (0.0-0.8); MONO % 5.7 % (2.0-8.0); NEUTROPHILS # 7.1 10^3/uL (1.5-8.5); NEUTROPHILS % 72.8 % (36.0-66.0); PLATELET COUNT, AUTOMATED 346 10^3/uL (150-450); WHITE BLOOD COUNT 9.8 10^3/uL (4.0-10.0)
[2023-08-26 23:06] LABS: BLOOD UREA NITROGEN 12 MG/DL (9-23); CALCIUM LEVEL 9.9 MG/DL (8.5-10.1); CARBON DIOXIDE LEVEL 32 MMOL/L (20-31); CHLORIDE LEVEL 100 MMOL/L (98-107); CREATININE FOR GFR 0.61 MG/DL (0.55-1.30); GLOMERULAR FILTRATION RATE > 60.0 (>60); GLUCOSE, FASTING 81 MG/DL (60-100); HCG, SERUM QUANTITATIVE 20170.5 MIU/ML (<4.2); POTASSIUM SERUM 4.8 MMOL/L (3.5-5.1); SODIUM LEVEL 135 MMOL/L (136-145)
[2023-08-27 04:24] VITALS: BP 142/80; TEMP 98.6; O2SAT 96
== END 2023-08-27 04:33 | disposition home or self-care (01) ==
LOC: M ED 21:16
DX: O03.4 Incomplete spontaneous abortion without complication (principal); F17.210 Nicotine dependence, cigarettes, uncomplicated; Z79.899 Other long term (current) drug therapy

== ENCOUNTER → 2023-09-30 | Outpatient (CLI) | payer MEDICAID, OTHER | LOC: M LAB 12:02 | PROVIDERS: ATTEND Family Medicine | DX: F11.20 Opioid dependence, uncomplicated (principal) | CPT/HCPCS: 36415; G0480 ==

== ENCOUNTER → 2023-10-28 | Outpatient (CLI) | payer OTHER | LOC: M LAB 14:04 | PROVIDERS: ATTEND Family Medicine | DX: F11.20 Opioid dependence, uncomplicated (principal) | CPT/HCPCS: 36415; G0480 ==

== ENCOUNTER → 2023-10-29 | Outpatient (CLI) | payer OTHER | LOC: M LAB 10:04 | PROVIDERS: ATTEND Family Medicine | DX: F11.20 Opioid dependence, uncomplicated (principal) | CPT/HCPCS: 36415; G0480 ==

== ENCOUNTER → 2024-04-16 | Outpatient (CLI) | payer OTHER | LOC: M LAB 11:11 | PROVIDERS: ATTEND Family Medicine | DX: Z51.81 Encounter for therapeutic drug level monitoring (principal) | CPT/HCPCS: 36415; G0480 ==

== ENCOUNTER 2024-07-09 12:20 | Emergency (ER) | payer MEDICAID, OTHER ==
[~2024-07-09] VITALS: Ht 160 cm; Wt 89.1 kg
[2024-07-09] MEDS ORDERED: SERT50TA29 (12:30)
[2024-07-09 14:04] LABS: BASO % 0.2 % (0.0-1.0); EOS # 0.1 10^3/uL (0.0-0.5); EOS % 0.9 % (0.0-3.0); HEMATOCRIT 40.8 % (36.0-47.0); HEMOGLOBIN 13.7 g/dl (12.0-15.5); LYMPH # 1.1 10^3/uL (1.5-5.0); LYMPH % 11.7 % (24.0-44.0); MEAN CORPUSCULAR HEMOGLOBIN 30.3 pg (27.0-33.0); MEAN CORPUSCULAR HGB CONC 33.6 g/dl (32.0-36.5); MEAN CORPUSCULAR VOLUME 90.3 fl (80.0-96.0); MONO # 0.9 10^3/uL (0.0-0.8); MONO % 9.4 % (2.0-8.0); NEUTROPHILS # 7.1 10^3/uL (1.5-8.5); NEUTROPHILS % 77.5 % (36.0-66.0); PLATELET COUNT, AUTOMATED 319 10^3/uL (150-450); RED BLOOD COUNT 4.52 10^6/uL (4.00-5.40); WHITE BLOOD COUNT 9.1 10^3/uL (4.0-10.0)
[2024-07-09 14:18] LABS: ERYTHROCYTE SEDIMENTATION RATE 78 mm/hr (0-20)
[2024-07-09 14:29] LABS: BLOOD UREA NITROGEN 11 MG/DL (9-23); CALCIUM LEVEL 9.3 MG/DL (8.5-10.1); CARBON DIOXIDE LEVEL 28 MMOL/L (20-31); CHLORIDE LEVEL 102 MMOL/L (98-107); CREATININE FOR GFR 0.64 MG/DL (0.55-1.30); GLOMERULAR FILTRATION RATE > 60.0 (>60); GLUCOSE, FASTING 79 MG/DL (60-100); SODIUM LEVEL 139 MMOL/L (136-145)
[2024-07-09 14:42] LABS: C REACTIVE PROTEIN QUANTITATIV 20.27 MG/DL (<1.0)
[2024-07-09] MEDS: DALBAVANCIN 1,500 MG in D5W 250 ML IV ONE (19:38)
[2024-07-09 20:38] VITALS: BP 136/79; TEMP 98.1; O2SAT 96
== END 2024-07-09 20:44 | disposition home or self-care (01) ==
LOC: M ED 12:20
DX: L03.211 Cellulitis of face (principal); F43.10 Post-traumatic stress disorder, unspecified; F17.200 Nicotine dependence, unspecified, uncomplicated; Z79.899 Other long term (current) drug therapy
CPT/HCPCS: 80048; 85025; 85652; 86140; 87040; 96365; 99284; J0875

== ENCOUNTER 2024-12-10 15:22 | Emergency (ER) | payer OTHER ==
[~2024-12-10 15:22] MED LIST changes: +SERT50TA29
[2024-12-10 15:41] VITALS: BP 186/99; O2SAT 99
[2024-12-10 15:43] VITALS: TEMP 97
[2024-12-10] MEDS ORDERED: OVERDOSE RESCUE KIT XX SCH (16:05)
== END 2024-12-10 16:31 | disposition left against medical advice (07) ==
LOC: M ED 15:22
DX: T40.1X1A Poisoning by heroin, accidental (unintentional), initial encounter (principal); Z53.20 Procedure and treatment not carried out because of patient's decision for unspecified reasons; F19.10 Other psychoactive substance abuse, uncomplicated

== ENCOUNTER → 2024-12-20 | Outpatient (CLI) | payer OTHER ==
[2024-12-25 11:17] LABS: HCV RNA QUANTITATION <15 NOT DETECTED IU/mL (NOT DETECTED); HCV RNA log10 <1.18 NOT DETECTED Log IU/mL (NOT DETECTED)
== END ==
LOC: M LAB 16:11
PROVIDERS: ATTEND Family Medicine
DX: Z20.828 Contact with and (suspected) exposure to other viral communicable diseases (principal)

== ENCOUNTER → 2024-12-21 | Outpatient (CLI) | payer OTHER ==
[2024-12-21 18:51] LABS: PLATELET COUNT, AUTOMATED 393 10^3/uL (150-450)
[2024-12-21 18:53] LABS: ALT/SGPT 26 U/L (7.0-40); AST/SGOT 27 U/L (<34); CALCIUM LEVEL 9.4 MG/DL (8.5-10.1); CARBON DIOXIDE LEVEL 28 MMOL/L (20-31); CHLORIDE LEVEL 103 MMOL/L (98-107); CREATININE FOR GFR 0.65 MG/DL (0.55-1.30); GLOMERULAR FILTRATION RATE > 90.0 (>60); POTASSIUM SERUM 4.5 MMOL/L (3.5-5.1); SODIUM LEVEL 139 MMOL/L (136-145)
[2024-12-21 19:19] LABS: HCG, SERUM QUALITATIVE NEGATIVE (NEGATIVE)
[2024-12-21 19:25] LABS: HIV 1&2 SCREEN NEGATIVE (NEGATIVE)
[2024-12-21 19:42] LABS: HEPATITIS C VIRUS ABY INDEX > 11.00 INDEX (<0.8)
[2024-12-21 19:51] LABS: Trichomonas vaginalis (AMP) NOT DETECTED (NEGATIVE)
[2024-12-21 20:15] LABS: GC DNA AMPLIFICATION NEGATIVE (NEGATIVE)
[2024-12-25 11:17] LABS: HCV RNA QUANTITATION <15 NOT DETECTED IU/mL (NOT DETECTED); HCV RNA log10 <1.18 NOT DETECTED Log IU/mL (NOT DETECTED)
[2024-12-26 16:42] LABS: METHADONE LEVEL BLOOD 790 ng/mL (100-400)
== END ==
LOC: M LAB 16:17
PROVIDERS: ATTEND Family Medicine
DX: F11.20 Opioid dependence, uncomplicated (principal)
CPT/HCPCS: 36415; 80053; 84703; 85027; 86780; 86803; 87340; 87389; 87522; 87661; 87810; 87850; G0480

== ENCOUNTER → 2024-12-22 | Outpatient (CLI) | payer OTHER | LOC: M LAB 10:12 | PROVIDERS: ATTEND Family Medicine | DX: Z51.89 Encounter for other specified aftercare (principal); Z79.891 Long term (current) use of opiate analgesic | CPT/HCPCS: 36415; G0480 ==

== ENCOUNTER 2025-01-20 11:04 | Inpatient (IN) | payer OTHER ==
[~2025-01-20] VITALS: Ht 160 cm; Wt 88.2 kg
[2025-01-20 12:14] LABS: PLATELET COUNT, AUTOMATED 399 10^3/uL (150-450)
[2025-01-20 12:32] LABS: ETHYL ALCOHOL (ETHANOL) < 0.003 % (0.000-0.010)
[2025-01-20 12:33] LABS: ALT/SGPT 25 U/L (7.0-40); AST/SGOT 55 U/L (<34); CALCIUM LEVEL 9.7 MG/DL (8.5-10.1); CARBON DIOXIDE LEVEL 25 MMOL/L (20-31); CHLORIDE LEVEL 103 MMOL/L (98-107); CREATININE FOR GFR 0.66 MG/DL (0.55-1.30); GLOMERULAR FILTRATION RATE > 90.0 (>60); POTASSIUM SERUM 4.1 MMOL/L (3.5-5.1); SALICYLATE LEVEL < 3.0 MG/DL (<30); SODIUM LEVEL 135 MMOL/L (136-145)
[2025-01-20 12:38] LABS: HCG, SERUM QUALITATIVE NEGATIVE (NEGATIVE)
[2025-01-20 12:42] LABS: BARBITURATES URINE NEGATIVE (NEGATIVE); BENZODIAZEPINES URINE NEGATIVE (NEGATIVE); OPIATES URINE NEGATIVE (NEGATIVE); PHENCYCLIDINE URINE NEGATIVE (NEGATIVE)
[2025-01-20 13:06] LABS: AMPHETAMINES LEVEL URINE POSITIVE (NEGATIVE); CANNABINOIDS URINE POSITIVE (NEGATIVE); COCAINE METABOLITE URINE POSITIVE (NEGATIVE); METHADONE URINE POSITIVE (NEGATIVE)
[2025-01-20] MEDS ORDERED: HOME MED LIST COMPLETE! XX SCH (13:40)
[2025-01-20] MEDS ORDERED: PILL CUTTER 1 EACH XX ONE (16:57)
[2025-01-20] MEDS: METHADONE 10 MG TAB PO ONE (17:02)
[2025-01-20] MEDS ORDERED: MAALOX 30 ML SUSP *UDC PO PRN (19:55)
[2025-01-20] MEDS ORDERED: IBUPROFEN 400 MG TAB PO PRN (19:55)
[2025-01-20] MEDS ORDERED: ACETAMINOPHEN 325 MG TAB PO PRN (19:55)
[2025-01-20] MEDS ORDERED: MOM 30 ML SUSPENSION UDC PO PRN (19:55)
[2025-01-20] MEDS ORDERED: LORazepam 1 MG TAB PO PRN (19:55)
[2025-01-20 23:10] VITALS: BP 140/97; TEMP 97; O2SAT 95
[2025-01-21 06:29] VITALS: BP 115/59; TEMP 97.3; O2SAT 97
[2025-01-21] MEDS: NICOTINE 21 MG/24 HR 1 EA TRANSDERMAL TD SCH (10:57)
[2025-01-21 15:47] VITALS: BP 137/65; TEMP 98.3; O2SAT 95
[2025-01-21] MEDS: METHADONE 10 MG TAB PO SCH (17:34)
[2025-01-21] MEDS: QUEtiapine FUMARATE 50MG TAB PO SCH (21:23)
[2025-01-21] MEDS: traZODone 50 MG TAB PO PRN (21:24)
[2025-01-22 06:40] VITALS: BP 120/65; TEMP 97.1; O2SAT 100
[2025-01-22] MEDS: PILL CUTTER 1 EACH XX PRN (09:58)
[2025-01-22] MEDS: GABAPENTIN 100 MG CAP PO SCH (16:12)
[2025-01-22 18:56] VITALS: BP 133/86; TEMP 97.6; O2SAT 97
[2025-01-23 06:38] VITALS: BP 135/77; TEMP 97.9; O2SAT 98
[2025-01-23 15:28] VITALS: BP 115/53; TEMP 97.1; O2SAT 95
[2025-01-24 06:41] VITALS: BP 115/53; TEMP 97.5; O2SAT 95
[2025-01-24] MEDS ORDERED: GABA-1171 PO (07:57)
[2025-01-24] MEDS ORDERED: QUET100T2 PO (07:57)
== END 2025-01-24 14:05 | disposition home or self-care (01) | DRG 753 ==
LOC: M ED 11:04 → M ED INP 19:52 → M PSY 23:05
PROVIDERS: ADMIT Psychiatry & Neurology Neurology; ATTEND General Practice
DX: F31.9 Bipolar disorder, unspecified (principal); R45.851 Suicidal ideations; F15.11 Other stimulant abuse, in remission; F14.11 Cocaine abuse, in remission; Z91.52 Personal history of nonsuicidal self-harm; Z79.899 Other long term (current) drug therapy; Z63.0 Problems in relationship with spouse or partner

== ENCOUNTER 2025-02-12 00:13 | Emergency (ER) | payer OTHER, MEDICAID ==
[~2025-02-12] VITALS: Ht 160 cm; Wt 90.9 kg
[~2025-02-12 00:13] MED LIST changes: +GABA-1171 PO; +QUET100T2 PO
[2025-02-12 01:06] LABS: PLATELET COUNT, AUTOMATED 355 10^3/uL (150-450)
[2025-02-12 01:27] LABS: PHENCYCLIDINE URINE NEGATIVE (NEGATIVE)
[2025-02-12 01:28] LABS: BARBITURATES URINE NEGATIVE (NEGATIVE)
[2025-02-12 01:31] LABS: ETHYL ALCOHOL (ETHANOL) < 0.003 % (0.000-0.010)
[2025-02-12 01:32] LABS: SALICYLATE LEVEL < 3.0 MG/DL (<30)
[2025-02-12 01:33] LABS: ALT/SGPT 47 U/L (7.0-40); AST/SGOT 51 U/L (<34); CALCIUM LEVEL 9.3 MG/DL (8.5-10.1); CARBON DIOXIDE LEVEL 27 MMOL/L (20-31); CHLORIDE LEVEL 106 MMOL/L (98-107); CREATININE FOR GFR 0.65 MG/DL (0.55-1.30); GLOMERULAR FILTRATION RATE > 90.0 (>60); POTASSIUM SERUM 4.1 MMOL/L (3.5-5.1); SODIUM LEVEL 140 MMOL/L (136-145)
[2025-02-12 01:37] LABS: AMPHETAMINES LEVEL URINE POSITIVE (NEGATIVE); BENZODIAZEPINES URINE POSITIVE (NEGATIVE); CANNABINOIDS URINE POSITIVE (NEGATIVE); COCAINE METABOLITE URINE POSITIVE (NEGATIVE); METHADONE URINE POSITIVE (NEGATIVE); OPIATES URINE POSITIVE (NEGATIVE)
[2025-02-12] MEDS ORDERED: GABA-1171 PO (10:38)
[2025-02-12] MEDS ORDERED: QUET100T2 PO (10:38)
[2025-02-12] MEDS ORDERED: HOME MED LIST COMPLETE! XX SCH (12:10)
[2025-02-12] MEDS: METHADONE 10 MG TAB PO ONE (12:14)
[2025-02-12 13:07] VITALS: BP 140/82; TEMP 97.2; O2SAT 97
[2025-02-12] MEDS ORDERED: GABAPENTIN 100 MG CAP PO SCH (16:00)
== END 2025-02-12 13:09 | disposition home or self-care (01) ==
LOC: M ED 00:13
DX: F31.30 Bipolar disorder, current episode depressed, mild or moderate severity, unspecified (principal); F19.10 Other psychoactive substance abuse, uncomplicated; F17.200 Nicotine dependence, unspecified, uncomplicated; Z79.899 Other long term (current) drug therapy
CPT/HCPCS: 80048; 80076; 80143; 80307; 82077; 84443; 85027; 99284; S0109